=== PATIENT | female | born 1975 | race Caucasian/White ===

== ENCOUNTER 2020-02-19 14:58 | Outpatient (CLI) | payer BC ==
--- NOTE | 2020-02-19 15:26 | RAD ---
EXAM: XR Lumbar Spine 2 Or 3 View PROVIDED CLINICAL HISTORY: Low back pain COMPARISON: None FINDINGS: There are 5 nonrib-bearing lumbar-type vertebral bodies. There is loss of intervertebral disc height at the L3-4 and L4-5 levels with scattered osteophytes seen throughout the lumbar spine. The vertebral body heights are within limits, and no fracture is seen. No subluxation is present. Facet d egenerative changes are noted. Slight right convex curvature lumbar spine is present. Surgical clips overlie the right upper quadrant. IMPRESSION: Degenerative changes lumbar spine.
== END 2020-02-19 14:59 | disposition home or self-care (01) ==
LOC: BICRAD 14:58
PROVIDERS: ATTEND Specialist
DX: M54.5 Low back pain (principal); M47.816 Spondylosis without myelopathy or radiculopathy, lumbar region
CPT/HCPCS: 72100

== ENCOUNTER 2020-08-19 16:00 | Outpatient (CLI) | payer BC ==
--- NOTE | 2020-08-19 16:30 | RAD ---
RIGHT KNEE FOUR VIEWS: 08/19/20 HISTORY: Right knee pain. FINDINGS/IMPRESSION: Degenerative changes are present manifested by osteophyte formation and joint space narrowing. No acu te fracture, dislocation, or bony destruction identified. There is fullness in the suprapatellar pouc h suspicious for joint effusion. POS: AH
== END 2020-08-19 16:01 | disposition home or self-care (01) ==
LOC: BICRAD 16:00
PROVIDERS: ATTEND Specialist
DX: M25.561 Pain in right knee (principal); M17.11 Unilateral primary osteoarthritis, right knee

== ENCOUNTER 2021-10-09 16:09 | Inpatient (IN) | payer BC ==
[2021-10-09 18:00] LABS: #Basophils 0.1 thou/uL (0.0-0.2); #Eosinphils 0.1 thou/uL (0.0-0.7); #Lymphocytes 2.4 thou/uL (1.20-3.40); #Monocytes 0.4 thou/uL (0.11-0.59); %Basophils 0.6 % (0.0-1.0); %Eosinophils 1.1 % (0.0-10.0); %Lymphocytes 21.7 % (21.0-51.0); %Neutrophils 72.5 % (42.0-75.0); Hemoglobin 12.4 g/dL (12.0-16.0); Mean Corpuscular Hemoglobin 28.8 pg (27.0-31.0); Mean Corpuscular Volume 89.8 fL (78.0-98.0); Mean Platelet Volume 8.2 fL (7.4-10.4); Platelet Count 286 thou/uL (130-400); RBC Distribution Width 12.5 % (11.5-14.5)
[2021-10-09 18:12] LABS: Prothrombin Time 12.8 sec (12.0-14.7)
[2021-10-09 18:13] LABS: PTT 32.4 sec (22.9-36.1)
[2021-10-09 18:21] LABS: Anion Gap 14 mmol/L (10-20); BUN (Urea Nitrogen) 14 mg/dL (7.0-18.7); Calc. Creatinine Clearance 0 mL/min (70-130); Calcium 9.1 mg/dL (7.8-10.44); Carbon Dioxide 25 mmol/L (22-29); Chloride 103 mmol/L (98-107); Glucose 95 mg/dL (70-105); Potassium 4.2 mmol/L (3.5-5.1); Sodium 138 mmol/L (136-145)
[2021-10-09] MEDS ORDERED: Propofol 1,000 MG/100 ML VIAL IV ONE (18:48)
[2021-10-09] MEDS ORDERED: Morphine 4 MG/ML VIAL SLOW IVP SCH (21:45)
[2021-10-09] MEDS ORDERED: Morphine 4 MG/ML VIAL ONE (21:51)
[2021-10-10 00:03] VITALS: BMI 45.2
[2021-10-10] MEDS ORDERED: Dextrose 50% Abboject 50 ML SYRINGE SLOW IVP PRN (03:00)
[2021-10-10] MEDS ORDERED: Dextrose 5% in Water 1,000 ML IV PRN (03:00)
[2021-10-10] MEDS ORDERED: traMADol HCl 50 MG TAB PO PRN ×2 (03:00)
[2021-10-10] MEDS ORDERED: hydrALAZINE 20 MG/ML VIAL SLOW IVP PRN (03:00)
[2021-10-10] MEDS ORDERED: Ondansetron PF 4 MG/2 ML Vial IVP PRN (03:00)
[2021-10-10] MEDS ORDERED: Acetaminophen 325 MG TAB PO PRN (03:00)
[2021-10-10] MEDS ORDERED: Ondansetron ODT 4 MG TAB PO PRN (03:00)
[2021-10-10] MEDS ORDERED: Famotidine 20 MG TAB PO SCH (03:15)
[2021-10-10] MEDS: Sodium Chloride 0.9% 1,000 ML IV SCH ×2 (05:45→11:30)
[2021-10-10] MEDS: Morphine 4 MG/ML VIAL SLOW IVP PRN ×3 (08:00→14:25)
[2021-10-10 09:42] LABS: #Eosinphils 0.2 thou/uL (0.0-0.7); #Lymphocytes 2.3 thou/uL (1.20-3.40); #Monocytes 0.5 thou/uL (0.11-0.59); #Neutrophils 5.4 thou/uL (1.40-6.50); %Basophils 0.3 % (0.0-1.0); %Eosinophils 2.1 % (0.0-10.0); %Lymphocytes 27.5 % (21.0-51.0); %Monocytes 6.4 % (0.0-10.0); %Neutrophils 63.7 % (42.0-75.0); Mean Corpuscular HGB CONC 31.5 g/dL (32.0-36.0); Mean Corpuscular Hemoglobin 28.2 pg (27.0-31.0); Mean Corpuscular Volume 89.3 fL (78.0-98.0); Platelet Count 238 thou/uL (130-400); RBC Distribution Width 12.8 % (11.5-14.5); Red Blood Cell (RBC) Count 3.89 mill/uL (4.20-5.40); White Blood Cell (WBC) Count 8.5 thou/uL (4.8-10.8)
[2021-10-10 10:02] LABS: Anion Gap 13 mmol/L (10-20); BUN (Urea Nitrogen) 13 mg/dL (7.0-18.7); Calc. Creatinine Clearance 179 mL/min (70-130); Calcium 8.7 mg/dL (7.8-10.44); Carbon Dioxide 24 mmol/L (22-29); Chloride 105 mmol/L (98-107); Glucose 94 mg/dL (70-105); Potassium 3.9 mmol/L (3.5-5.1); Sodium 138 mmol/L (136-145)
[2021-10-10] MEDS ORDERED: Ketorolac Tromethamine 30 MG/ML VIAL IVP SCH (11:00)
[2021-10-10] MEDS ORDERED: ceFAZolin 2 GM/Dextrose 50 ML 2 GM in Premix Bag 1 BAG IVPB SCH (12:00)
[2021-10-10 14:47] LABS: SARS-CoV-2 PCR by NAA Not Detected (NotDetected)
[2021-10-10] MEDS ORDERED: Fentanyl 100 MCG/2 ML VIAL ONE (17:15)
[2021-10-10] MEDS ORDERED: ceFAZolin 2 GM/Dextrose 50 ML IVPB ONE (17:19)
[2021-10-10] MEDS ORDERED: Ondansetron PF 4 MG/2 ML Vial ONE (17:32)
[2021-10-10] MEDS ORDERED: Bupivacaine HCl 0.5%/Epinephrine 1:200,000/PF 30 ml Vial ONE (17:32)
[2021-10-10] MEDS ORDERED: Lidocaine 1% PF 5 ML VIAL ONE (17:32)
[2021-10-10] MEDS ORDERED: Succinylcholine 200 MG/10 ml SYRINGE FS ONE (17:32)
[2021-10-10] MEDS ORDERED: ePHEDrine 50 MG/ML VIAL ONE (17:32)
[2021-10-10] MEDS ORDERED: PHENYLEPHRINE-NS 100 MCG/ML 10 ML SYRINGE ONE (17:32)
[2021-10-10] MEDS ORDERED: PROPOFOL 200 MG/20 ML VIAL ONE (17:32)
[2021-10-10] MEDS ORDERED: Dexamethasone 20 MG/5 ML VIAL ONE (17:32)
[2021-10-10] MEDS: Oxymetazoline HCl 0.05% (30 ML BOT) NS SCH (21:09)
[2021-10-10] MEDS: Famotidine 20 MG TAB PO SCH (21:09)
[2021-10-11] MEDS: ceFAZolin 2 GM/Dextrose 50 ML 2 GM in Premix Bag 1 BAG IVPB SCH ×2 (02:40→12:22)
[2021-10-11] MEDS ORDERED: rOPINIRole HCl 2 MG TAB PO SCH ×2 (02:45→09:00)
[2021-10-11] MEDS ORDERED: Ibuprofen 600 MG TAB PO SCH (06:00)
[2021-10-11] MEDS ORDERED: Ibuprofen 600 MG TAB PO PRN (08:27)
[2021-10-11] MEDS ORDERED: Pregabalin 50 MG CAP PO SCH (09:00)
[2021-10-11] MEDS: traMADol HCl 50 MG TAB PO SCH ×2 (09:02→15:17)
[2021-10-11] MEDS: Oxymetazoline HCl 0.05% (30 ML BOT) NS SCH (09:03)
[2021-10-11] MEDS: Famotidine 20 MG TAB PO SCH (09:03)
[2021-10-11] MEDS ORDERED: Acetaminophen 325 MG TAB PO SCH (12:00)
[2021-10-11 15:43] VITALS: BP 141/77; TEMP 97.8
== END 2021-10-11 16:15 | disposition home or self-care (01) | DRG 512 ==
LOC: ERS 16:09 → SURG B 20:39
PROVIDERS: ADMIT Specialist; ATTEND Surgery
PROC: 0PSJXZZ Reposition Left Radius, External Approach (ICD-10-PCS; 2021-10-09)
PROC: 0PSL04Z Reposition Left Ulna with Internal Fixation Device, Open Approach (ICD-10-PCS; principal; 2021-10-10)
PROC: 0PSJ04Z Reposition Left Radius with Internal Fixation Device, Open Approach (ICD-10-PCS; 2021-10-10)
DX: S52.032A Displaced fracture of olecranon process with intraarticular extension of left ulna, initial encounter for closed fracture (principal); S52.042A Displaced fracture of coronoid process of left ulna, initial encounter for closed fracture; S52.122A Displaced fracture of head of left radius, initial encounter for closed fracture; W18.30XA Fall on same level, unspecified, initial encounter; Z20.822 Contact with and (suspected) exposure to COVID-19; F41.9 Anxiety disorder, unspecified; G25.81 Restless legs syndrome; E11.9 Type 2 diabetes mellitus without complications; Z90.49 Acquired absence of other specified parts of digestive tract; Z79.899 Other long term (current) drug therapy; Z88.2 Allergy status to sulfonamides
CPT/HCPCS: 24655; 36415; 36416; 76000; 80048; 85025; 85610; 85730; 96374; C1713; C1776; C1874; J0690; J1100; J1885; J2270; J2405; J2704; J3010; J3490; J7050; U0003; U0005

== ENCOUNTER 2022-12-28 09:22 | Outpatient (CLI) | payer BC | END 2022-12-28 09:23 | disposition home or self-care (01) | LOC: DTY/OP 09:22 | PROVIDERS: ATTEND Surgery | DX: E66.01 Morbid (severe) obesity due to excess calories (principal) | CPT/HCPCS: 97802 ==

== ENCOUNTER 2023-01-25 08:35 | Outpatient (CLI) | payer BC ==
[2023-01-25 10:15] LABS: #Eosinphils 0.2 10x3/uL (0.0-0.5); #Monocytes 0.4 10x3/uL (0.0-1.1); #Neutrophils 5.4 10x3/uL (1.5-8.4); %Basophils 0.4 % (0.0-2.0); %Eosinophils 2.6 % (0.0-6.0); %Lymphocytes 31.5 % (18.0-47.0); %Monocytes 4.6 % (0.0-10.0); %Neutrophils 60.6 % (40.0-75.0); Hemoglobin 12.4 g/dL (12.0-15.5); Mean Corpuscular HGB CONC 32.8 g/dL (32.0-36.0); Mean Corpuscular Hemoglobin 28.1 pg (27.0-33.0); Mean Corpuscular Volume 85.7 fl (81.6-98.3); Mean Platelet Volume 11.7 fl (7.4-10.4); Platelet Count 316 10x3/uL (150-450); RBC Distribution Width 14.6 % (11.5-14.5); Red Blood Cell (RBC) Count 4.41 10x6/uL (3.90-5.03)
[2023-01-25 10:17] LABS: ALT (SGPT) 12 U/L (8-55); AST (SGOT) 17 U/L (5-34); Albumin 4.1 g/dL (3.5-5.0); Alkaline Phosphatase 128 U/L (40-110); Anion Gap 15 mmol/L (10-20); BUN (Urea Nitrogen) 14 mg/dL (7.0-18.7); Bilirubin, Total 0.5 mg/dL (0.2-1.2); Calc. Creatinine Clearance 0 mL/min (70-130); Calcium 8.8 mg/dL (7.8-10.44); Carbon Dioxide 24 mmol/L (22-29); Chloride 106 mmol/L (98-107); Estimated GFR 82; Globulin 2.7 g/dL (2.4-3.5); Glucose 103 mg/dL (70-105); Potassium 4.4 mmol/L (3.5-5.1); Protein, Total 6.8 g/dL (6.0-8.3); Sodium 141 mmol/L (136-145)
[2023-01-25 15:14] LABS: Hemoglobin A1c 5.2 % (4.0-6.0)
== END 2023-01-25 08:36 | disposition home or self-care (01) ==
LOC: LABBT 08:35
PROVIDERS: ATTEND Surgery
DX: Z01.818 Encounter for other preprocedural examination (principal); E66.01 Morbid (severe) obesity due to excess calories
CPT/HCPCS: 71046; 80053; 83036; 85025; 93005; 93010